=== PATIENT | female | born 1990 | race Two or more races ===

== ENCOUNTER 2021-01-30 20:13 | Inpatient (IN) | payer MEDICAID ==
[~2021-01-30] VITALS: Ht 154.9 cm; Wt 128.5 kg
[2021-01-30] MEDS ORDERED: IBUPROFEN 600 MG TAB PO ONE (20:45)
[2021-01-30] MEDS ORDERED: SODIUM CHLORIDE 0.9% 1,000 ML IV ONE (20:45)
[2021-01-30 20:52] LABS: Basophils # (auto) 0.1 10 ^3/uL (0-0.2); Basophils % (auto) 0.7 % (0.0-2.0); Eosinophils # (auto) 0 10 ^3/uL (0-0.8); Eosinophils % (auto) 0.1 % (0.0-7.0); Hematocrit 40.3 % (36.0-46.0); Hemoglobin 12.9 g/dL (12.2-16.2); Lymphocytes # (auto) 2.1 10 ^3/uL (0.4-5.4); Lymphocytes % (auto) 18.9 % (10.0-50.0); Mean Corpuscular Hemoglobin 21.5 pg (28.0-32.0); Mean Corpuscular Volume 67.2 fL (80.0-100.0); Monocytes # (auto) 0.7 10 ^3/uL (0-1.3); Monocytes % (auto) 6.4 % (0.0-12.0); Neutrophils # (auto) 8.1 10 ^3/uL (1.6-8.6); Neutrophils % (auto) 73.9 % (37.0-80.0); Nucleated Red Blood Cells % 0.1 %; Red Blood Cells 5.99 10^6/uL (4.0-5.20)
[2021-01-30 21:09] LABS: Albumin 3.5 g/dL (3.4-5.0); Anion Gap 8 (5-15); Blood Urea Nitrogen 11 mg/dL (7-18); Calcium 8.8 mg/dL (8.5-10.1); Carbon Dioxide 23 mmol/L (21-32); Chloride 106 mmol/L (98-107); Glucose 110 mg/dL (74-106); Magnesium 2.5 mg/dL (1.6-2.6); Sodium 137 mmol/L (136-145)
[2021-01-30 21:18] LABS: Alanine Aminotransferase 113 U/L (13-56); Alkaline Phosphatase 101 U/L (45-117); Aspartate Aminotransferase 38 U/L (15-37); Bilirubin, Total 0.3 mg/dL (0.2-1.0); GFR African American 74 mL/min; GFR Non-African American 61 mL/min; Total Protein 8.4 g/dL (6.4-8.2)
[2021-01-30 22:53] LABS: Urine Bacteria FEW /hpf (None Seen); Urine Blood Negative /uL (Negative); Urine Hyaline Cast FEW /lpf (0 - 2); Urine Specific Gravity 1.017 (1.001-1.035); Urine WBC 3 /hpf (0 - 5)
[2021-01-31] MEDS ORDERED: ONDANSETRON HCL 4 MG/2 ML VIAL IV PRN (03:00)
[2021-01-31] MEDS ORDERED: TEMAZEPAM 15 MG CAP PO PRN (03:00)
[2021-01-31] MEDS ORDERED: NITROGLYCERIN 0.4 MG SL TAB SL PRN (03:00)
[2021-01-31] MEDS ORDERED: MORPHINE SULFATE INJECTION 2 MG/ML SYRG IV PRN (03:00)
[2021-01-31] MEDS ORDERED: ACETAMINOPHEN 500 MG TAB PO PRN (03:00)
[2021-01-31] MEDS ORDERED: REMDESIVIR PER PHARMACY 0 ML IV SCH ×2 (03:00→05:30)
[2021-01-31] MEDS: DexAMETHasone SOD PHOS 10MG/1ML VIAL INJ IV SCH (03:48)
[2021-01-31] MEDS: cefTRIAXone 1GM/50ML D5W 50 ML IV SCH (03:49)
[2021-01-31 05:34] LABS: Magnesium 2.4 mg/dL (1.6-2.6)
[2021-01-31 05:43] LABS: CRP High Sensitivity 8.91 mg/dL (< 0.3)
[2021-01-31 05:58] VITALS: BP 104/81
[2021-01-31 09:00] VITALS: BP 114/72
[2021-01-31 11:06] LABS: Basophils # (auto) 0 10 ^3/uL (0-0.2); Basophils % (auto) 0.3 % (0.0-2.0); Eosinophils # (auto) 0 10 ^3/uL (0-0.8); Hematocrit 38.1 % (36.0-46.0); Nucleated Red Blood Cells % 0.2 %; Red Cell Distribution Width 18.9 % (11.8-14.3)
[2021-01-31 11:09] LABS: Lymphocytes # (auto) 1.8 10 ^3/uL (0.4-5.4); Lymphocytes % (auto) 20.7 % (10.0-50.0); Mean Corpuscular Hemoglobin 21.3 pg (28.0-32.0); Mean Corpuscular Hgb Conc. 31.5 g/dL (32.0-36.0); Mean Corpuscular Volume 67.8 fL (80.0-100.0); Monocytes # (auto) 0.4 10 ^3/uL (0-1.3); Monocytes % (auto) 5.3 % (0.0-12.0); Neutrophils # (auto) 6.2 10 ^3/uL (1.6-8.6); Neutrophils % (auto) 73.7 % (37.0-80.0); Red Blood Cells 5.63 10^6/uL (4.0-5.20); White Blood Cell 8.5 10^3/uL (4.4-10.8)
[2021-01-31 11:11] LABS: Albumin 3.1 g/dL (3.4-5.0); Calcium 8.9 mg/dL (8.5-10.1); Potassium 4.3 mmol/L (3.5-5.1)
[2021-01-31 11:14] LABS: BUN/Creatinine Ratio 11.5; Bilirubin, Total 0.5 mg/dL (0.2-1.0)
[2021-01-31] MEDS: ZINC SULFATE 220mg CAP or TAB PO SCH (12:19)
[2021-01-31] MEDS: AZITHROMYCIN 500MG/ 250ML 250 ML IV SCH (12:19)
[2021-01-31] MEDS: ASCORBIC ACID 1,000 MG TAB PO SCH (12:19)
[2021-01-31] MEDS: PANTOPRAZOLE 40 MG TAB PO SCH (12:19)
[2021-01-31] MEDS: CHOLECALCIFEROL (VITD3) 2,000 UNIT CAP/TAB PO SCH (12:20)
[2021-01-31] MEDS: ENOXAPARIN SOD 60 MG/0.6 ML SYRINGE SC SCH ×2 (12:20→22:17)
[2021-01-31 13:00] VITALS: BP 124/80
[2021-01-31] MEDS ORDERED: REMDESIVIR 200 MG in NS 210ml LOADING DOSE ADULT IV ONE (15:00)
[2021-01-31 17:00] VITALS: BP 102/63
[2021-01-31] MEDS: ALBUTEROL SULF HFA 90MCG INH 200DOSE IN PRN (21:08)
[2021-01-31 22:00] VITALS: BP 111/63
[2021-02-01 00:19] VITALS: BP 102/63
[2021-02-01 05:00] VITALS: BP 99/64
[2021-02-01 06:21] LABS: Albumin 2.7 g/dL (3.4-5.0); Calcium 8.5 mg/dL (8.5-10.1); Potassium 4.4 mmol/L (3.5-5.1)
[2021-02-01 06:23] LABS: BUN/Creatinine Ratio 15.1
[2021-02-01 06:26] LABS: Bilirubin, Total 0.2 mg/dL (0.2-1.0); Total Protein 7.2 g/dL (6.4-8.2)
[2021-02-01] MEDS: ALBUTEROL SULF HFA 90MCG INH 200DOSE IN PRN (07:26)
[2021-02-01] MEDS ORDERED: IOHEXOL 350 MG/ML 100ML IJ ONE (08:31)
[2021-02-01 08:51] VITALS: BP 129/75
[2021-02-01] MEDS: cefTRIAXone 1GM/50ML D5W 50 ML IV SCH (09:00)
[2021-02-01] MEDS: AZITHROMYCIN 500MG/ 250ML 250 ML IV SCH (10:00)
[2021-02-01] MEDS: PANTOPRAZOLE 40 MG TAB PO SCH (10:45)
[2021-02-01] MEDS: ASCORBIC ACID 1,000 MG TAB PO SCH (10:45)
[2021-02-01] MEDS: ZINC SULFATE 220mg CAP or TAB PO SCH (10:45)
[2021-02-01] MEDS: DexAMETHasone SOD PHOS 10MG/1ML VIAL INJ IV SCH (10:45)
[2021-02-01] MEDS: ENOXAPARIN SOD 60 MG/0.6 ML SYRINGE SC SCH ×2 (10:46→21:34)
[2021-02-01] MEDS: CHOLECALCIFEROL (VITD3) 2,000 UNIT CAP/TAB PO SCH (10:46)
[2021-02-01 13:00] VITALS: BP 119/83
[2021-02-01] MEDS: REMDESIVIR 100mg 100 MG in SODIUM CHL 0.9% 230 ML IV SCH (16:01)
[2021-02-01] MEDS ORDERED: FUROSEMIDE 20 MG/2 ML VIAL IV ONE (16:30)
[2021-02-01 17:00] VITALS: BP 135/78
[2021-02-01 22:26] VITALS: BP 124/85
[2021-02-02 05:00] VITALS: BP 110/59
[2021-02-02 07:04] LABS: Albumin 2.7 g/dL (3.4-5.0); Calcium 8.8 mg/dL (8.5-10.1); Potassium 4.3 mmol/L (3.5-5.1)
[2021-02-02 07:10] LABS: BUN/Creatinine Ratio 22.1; Bilirubin, Total 0.2 mg/dL (0.2-1.0); Total Protein 7.2 g/dL (6.4-8.2)
[2021-02-02 08:00] VITALS: BP 120/73
[2021-02-02 09:00] VITALS: BP 120/73
[2021-02-02] MEDS: cefTRIAXone 1GM/50ML D5W 50 ML IV SCH (09:36)
[2021-02-02] MEDS: ASCORBIC ACID 1,000 MG TAB PO SCH (09:37)
[2021-02-02] MEDS: ZINC SULFATE 220mg CAP or TAB PO SCH (09:37)
[2021-02-02] MEDS: CHOLECALCIFEROL (VITD3) 2,000 UNIT CAP/TAB PO SCH (09:37)
[2021-02-02] MEDS: PANTOPRAZOLE 40 MG TAB PO SCH (09:38)
[2021-02-02] MEDS: ENOXAPARIN SOD 60 MG/0.6 ML SYRINGE SC SCH ×2 (09:38→21:40)
[2021-02-02] MEDS: DexAMETHasone SOD PHOS 10MG/1ML VIAL INJ IV SCH (09:39)
[2021-02-02] MEDS: FUROSEMIDE 20 MG/2 ML VIAL IV SCH (09:40)
[2021-02-02] MEDS: AZITHROMYCIN 250 MG TAB PO SCH (10:45)
[2021-02-02] MEDS: ALBUTEROL SULF HFA 90MCG INH 200DOSE IN PRN (10:58)
[2021-02-02 13:00] VITALS: BP 104/70
[2021-02-02] MEDS: REMDESIVIR 100mg 100 MG in SODIUM CHL 0.9% 230 ML IV SCH (15:55)
[2021-02-02 17:00] VITALS: BP 136/89
[2021-02-02 22:00] VITALS: BP 123/91
[2021-02-03 05:00] VITALS: BP 104/64
[2021-02-03 06:46] LABS: Potassium 4.4 mmol/L (3.5-5.1)
[2021-02-03 07:03] LABS: Albumin 2.7 g/dL (3.4-5.0); BUN/Creatinine Ratio 22.9; Bilirubin, Total 0.2 mg/dL (0.2-1.0); Calcium 8.8 mg/dL (8.5-10.1); Total Protein 7.1 g/dL (6.4-8.2)
[2021-02-03 08:00] VITALS: BP 109/70
[2021-02-03 09:00] VITALS: BP 109/70
[2021-02-03] MEDS: ALBUTEROL SULF HFA 90MCG INH 200DOSE IN PRN ×2 (09:09→22:14)
[2021-02-03] MEDS: cefTRIAXone 1GM/50ML D5W 50 ML IV SCH (09:16)
[2021-02-03] MEDS: DexAMETHasone SOD PHOS 10MG/1ML VIAL INJ IV SCH (09:16)
[2021-02-03] MEDS: PANTOPRAZOLE 40 MG TAB PO SCH (09:17)
[2021-02-03] MEDS: ZINC SULFATE 220mg CAP or TAB PO SCH (09:17)
[2021-02-03] MEDS: FUROSEMIDE 20 MG/2 ML VIAL IV SCH (09:17)
[2021-02-03] MEDS: CHOLECALCIFEROL (VITD3) 2,000 UNIT CAP/TAB PO SCH (09:18)
[2021-02-03] MEDS: AZITHROMYCIN 250 MG TAB PO SCH (09:18)
[2021-02-03] MEDS: ASCORBIC ACID 1,000 MG TAB PO SCH (09:18)
[2021-02-03] MEDS: ENOXAPARIN SOD 60 MG/0.6 ML SYRINGE SC SCH ×2 (09:18→21:06)
[2021-02-03 13:00] VITALS: BP 100/63
[2021-02-03] MEDS ORDERED: BUDESONIDE (INHALATION) 0.5 MG/2 ML NEB NEB ONE (13:45)
[2021-02-03] MEDS: REMDESIVIR 100mg 100 MG in SODIUM CHL 0.9% 230 ML IV SCH (15:16)
[2021-02-03] MEDS: ACETAMINOPHEN 325 MG TAB PO PRN (15:17)
[2021-02-03 17:00] VITALS: BP 132/81
[2021-02-03 22:00] VITALS: BP 132/81
[2021-02-03] MEDS ORDERED: BUDESONIDE (INHALATION) 0.5 MG/2 ML NEB NEB SCH (22:00)
[2021-02-03] MEDS: BUDESONIDE (INHALATION) 180 MCG IH IN SCH (22:14)
[2021-02-04] VITALS (7 sets, daily range): BP systolic 108–132; BP diastolic 59–81
[2021-02-04] MEDS: BUDESONIDE (INHALATION) 180 MCG IH IN SCH ×2 (05:54→22:05)
[2021-02-04] MEDS: ALBUTEROL SULF HFA 90MCG INH 200DOSE IN PRN ×2 (05:54→22:05)
[2021-02-04 06:58] LABS: Potassium 4.3 mmol/L (3.5-5.1)
[2021-02-04 07:16] LABS: Albumin 2.8 g/dL (3.4-5.0); BUN/Creatinine Ratio 20.5; Bilirubin, Total 0.3 mg/dL (0.2-1.0); Calcium 8.7 mg/dL (8.5-10.1); Total Protein 7.3 g/dL (6.4-8.2)
[2021-02-04] MEDS: DexAMETHasone SOD PHOS 10MG/1ML VIAL INJ IV SCH (09:19)
[2021-02-04] MEDS: cefTRIAXone 1GM/50ML D5W 50 ML IV SCH (09:19)
[2021-02-04] MEDS: PANTOPRAZOLE 40 MG TAB PO SCH (09:20)
[2021-02-04] MEDS: FUROSEMIDE 20 MG/2 ML VIAL IV SCH (09:20)
[2021-02-04] MEDS: AZITHROMYCIN 250 MG TAB PO SCH (09:21)
[2021-02-04] MEDS: CHOLECALCIFEROL (VITD3) 2,000 UNIT CAP/TAB PO SCH (09:21)
[2021-02-04] MEDS: ENOXAPARIN SOD 60 MG/0.6 ML SYRINGE SC SCH ×2 (09:21→21:15)
[2021-02-04] MEDS: REMDESIVIR 100mg 100 MG in SODIUM CHL 0.9% 230 ML IV SCH (15:00)
[2021-02-04] MEDS: ACETAMINOPHEN 325 MG TAB PO PRN (15:01)
[2021-02-05 05:00] VITALS: BP 103/62
[2021-02-05 08:00] VITALS: BP 130/75
[2021-02-05] MEDS: DexAMETHasone SOD PHOS 10MG/1ML VIAL INJ IV SCH (08:43)
[2021-02-05] MEDS: cefTRIAXone 1GM/50ML D5W 50 ML IV SCH (08:43)
[2021-02-05] MEDS: FUROSEMIDE 20 MG/2 ML VIAL IV SCH (08:44)
[2021-02-05] MEDS: PANTOPRAZOLE 40 MG TAB PO SCH (08:45)
[2021-02-05] MEDS: ENOXAPARIN SOD 60 MG/0.6 ML SYRINGE SC SCH (08:45)
[2021-02-05] MEDS: CHOLECALCIFEROL (VITD3) 2,000 UNIT CAP/TAB PO SCH (08:45)
[2021-02-05 09:00] VITALS: BP 130/75
[2021-02-05] MEDS: BUDESONIDE (INHALATION) 180 MCG IH IN SCH (09:24)
[2021-02-05] MEDS: ALBUTEROL SULF HFA 90MCG INH 200DOSE IN PRN (09:24)
[2021-02-05] MEDS: ACETAMINOPHEN 325 MG TAB PO PRN (09:50)
[2021-02-05] MEDS ORDERED: ERGOCALCIFEROL 50,000 UNIT(1.25MG) CAP PO SCH (10:15)
[2021-02-05 12:15] VITALS: BP 122/75
[2021-02-05 12:25] VITALS: BP 122/75
[2021-02-05 17:26] VITALS: BP 131/75
== END 2021-02-05 19:55 | disposition home or self-care (01) | DRG 720 ==
LOC: ER 20:15 → TELE 01-31 02:49 → ER 01-31 05:15 → TELE-EAST 01-31 06:10
PROVIDERS: ADMIT Nurse Practitioner; ATTEND Internal Medicine
PROC: XW033E5 Introduction of Remdesivir Anti-infective into Peripheral Vein, Percutaneous Approach, New Technology Group 5 (ICD-10-PCS; principal; 2021-01-31)
DX: A41.89 Other specified sepsis (principal); J96.01 Acute respiratory failure with hypoxia; J12.82 Pneumonia due to coronavirus disease 2019; U07.1 COVID-19; E66.01 Morbid (severe) obesity due to excess calories; Z68.43 Body mass index [BMI] 50.0-59.9, adult; K76.0 Fatty (change of) liver, not elsewhere classified; R65.20 Severe sepsis without septic shock
CPT/HCPCS: 36415; 36600; 71045; 71275; 80053; 81001; 82306; 82728; 82805; 83036; 83615; 83735; 83880; 84443; 84484; 85025; 85379; 86141; 87426; 87804; 93005; 94640; 96365; 96375; G0378; J0696; J1100